=== PATIENT | female | born 1980 | race Caucasian/White ===

== ENCOUNTER 2016-07-04 17:24 | Emergency (ER) | payer SELFPAY ==
[2016-07-04 22:18] VITALS: BP 134/90
[2016-07-04 23:54] LABS: Bacteria,Urine 1+ /HPF (Negative); Bilirubin,Urine NEG (Negative); Blood,Urine LG (Negative); Ketones,Urine NEG (Negative); Leukocyte Esterase,Urine TR (Negative); Mucus,Urine 2+ /HPF; Nitrite,Urine NEG (Negative); Sperm,Urine FEW /HPF (NP); Urobilinogen,Urine < 2.0 mg/dL (<2.0)
[2016-07-04 23:59] LABS: RBC,Urine > 182.0 /HPF (0.0-6.0)
--- NOTE | 2016-07-05 02:14 | Emergency Department Report ---
ED ENT HPI - General Chief complaint: Sore Throat Stated complaint: PAIN IN THROAT Time Seen by Provider: 07/04/16 23:46 Source: patient Mode of arrival: Ambulatory Limitations: No Limitations - History of Present Illness Initial comments: This is a 36-year-old female that presents with sore throat that began today. Patient also is complaining with dysuria and polyuria that has been going on for 3-5 days. Patient denies any fever, chills, vaginal discharge, body aches, headache, chest pain or shortness of breath. Patient denies sick contact. Does not seem toxic or ill in appearance. No signs of any distress noted. Patient describes sore throat as aching. Patient stated she is not concerned about any sexual transmitted disease. MD complaint: sore throat, other (dysuria/polyuria) -: Gradual, days(s) Location: throat Severity: mild Severity scale (0 -10): 4 Quality: aching Consistency: constant Improves with: NSAID Worsens with: swallowing Associated Symptoms: pain with swallowing, sore throat. denies: fever, cough, gum swelling, toothache, tinnitus, hearing loss, discharge from ear, rhinorrhea - Related Data Previous Rx's Medication Instructions Recorded Last Taken Type Nitrofurantoin [place]/M-Cryst 100 mg PO Q12HR 7 Days 07/05/16 Unknown Rx [Macrobid CAP] Allergies Allergy/AdvReac Type Severity Reaction Status Date / Time Penicillins Allergy Rash Verified 07/04/16 18:04 ED Dental HPI - General Chief complaint: Sore Throat Stated complaint: PAIN IN THROAT Time Seen by Provider: 07/04/16 23:46 Source: patient Mode of arrival: Ambulatory Limitations: No Limitations - Related Data Previous Rx's Medication Instructions Recorded Last Taken Type Nitrofurantoin [place]/M-Cryst 100 mg PO Q12HR 7 Days 07/05/16 Unknown Rx [Macrobid CAP] Allergies Allergy/AdvReac Type Severity Reaction Status Date / Time Penicillins Allergy Rash Verified 07/04/16 18:04 ED Review of Systems ROS: Stated complaint: PAIN IN THROAT Other details as noted in HPI Constitutional: denies: chills, fever Eyes: denies: eye pain, eye discharge, vision change ENT: denies: ear pain, throat pain Respiratory: denies: cough, orthopnea, shortness of breath, SOB with exertion, SOB at rest, stridor, wheezing Cardiovascular: denies: chest pain, palpitations Endocrine: no symptoms reported Gastrointestinal: denies: abdominal pain, nausea, vomiting, diarrhea, constipation Genitourinary: denies: urgency, dysuria, discharge Musculoskeletal: denies: back pain, joint swelling, arthralgia Skin: denies: rash, lesions Neurological: denies: headache, weakness, paresthesias Psychiatric: denies: anxiety, depression Hematological/Lymphatic: denies: easy bleeding, easy bruising ED Past Medical Hx - Medications Home Medications: Home Medications Medication Instructions Recorded Confirmed Last Taken Type Nitrofurantoin [place]/M-Cryst 100 mg PO Q12HR 7 Days 07/05/16 Unknown Rx [Macrobid CAP] ED Physical Exam - General Limitations: No Limitations General appearance: alert, in no apparent distress - Head Head exam: Present: atraumatic, normocephalic - Eye Eye exam: Present: normal appearance - ENT ENT exam: Present: normal exam, normal orophraynx, mucous membranes moist, TM's normal bilaterally - Expanded ENT Exam Expanded Mouth exam: Present: normal external inspection, tongue normal. Absent: drooling, trismus, muffled voice, tongue elevation, laceration Teeth exam: Present: normal inspection Throat exam: Positive: normal inspection. Negative: tonsillar erythema, tonsillomegaly, tonsillar exudate, R peritonsillar mass, L peritonsillar mass - Neck Neck exam: Present: normal inspection, full ROM. Absent: tenderness, lymphadenopathy - Respiratory Respiratory exam: Present: normal lung sounds bilaterally. Absent: respiratory distress, wheezes, rales, rhonchi, stridor - Cardiovascular Cardiovascular Exam: Present: regular rate, normal rhythm. Absent: systolic murmur, diastolic murmur, rubs, gallop - GI/Abdominal GI/Abdominal exam: Present: soft, normal bowel sounds. Absent: distended, tenderness, guarding, rebound, rigid - Extremities Exam Extremities exam: Present: normal inspection, full ROM, normal capillary refill. Absent: tenderness, pedal edema - Back Exam Back exam: Present: normal inspection, full ROM. Absent: tenderness, CVA tenderness (R), CVA tenderness (L) - Neurological Exam Neurological exam: Present: alert, oriented X3, CN II-XII intact, normal gait - Psychiatric Psychiatric exam: Present: normal affect, normal mood - Skin Skin exam: Present: warm, dry, intact, normal color. Absent: rash ED Course Vital Signs 07/04/16 07/04/16 07/05/16 18:05 22:17 01:20 Temperature 98.5 F Pulse Rate 84 74 Respiratory 18 18 18 Rate Blood Pressure 142/96 Blood Pressure 134/90 [Left] O2 Sat by Pulse 100 98 99 Oximetry ED Medical Decision Making - Medical Decision Making Ed course: 36 year old female that presents with urinary tract infection 1- Centor score-1 points. At this time I instructed the patient that the chances of strep pharyngitis is 1-2.5%. No further testing nor the buttocks needed as per Centor score. 2- I instructed the patient of UA findings of the urinary tract infection and we 'll treat with antibiotics. 3- at the time of discharge the patient does not seem toxic or ill in appearance. 4- I instructed the patient to follow up with the primary care doctor in 3-5 days or if symptoms worsen. I also instructed that throat culture has been sent and the patient can come back in 3-5 days for culture results. 5- strep throat swab negative for strep. 6- patient received Macrobid 100 mg by mouth at time of discharge. Critical care attestation.: If time is entered above; I have spent that time in minutes in the direct care of this critically ill patient, excluding procedure time. ED Disposition Clinical Impression: UTI (urinary tract infection) Qualifiers: Urinary tract infection type: site unspecified Hematuria presence: without hematuria Qualified Code(s): N39.0 - Urinary tract infection, site not specified Disposition: DISCHARGED TO HOME OR SELFCARE Is pt being admited?: No Does the pt Need Aspirin: No Condition: Stable Instructions: Urinary Tract Infection in Women (ED) Additional Instructions: Follow-up with your primary care doctor in 3-5 days Report back in 3-5 days to [facility] for Throat culture results. If symptoms worsen report back to emergency room. Take full course of antibiotic as prescribed. Prescriptions: Nitrofurantoin [place]/M-Cryst [Macrobid CAP] 100 mg PO Q12HR 7 Days Referrals: SHIKHA LOWE MD [Primary Care Provider] - 3-5 Days PASCUAL PADGETT MD [Referring] - 3-5 Days JEANINE GUO MD [Referring] - 3-5 Days ABUTALIB,STERLING, MD [Referring] - 3-5 Days GILBERTO ROWE MD [Referring] - 3-5 Days [facility] [Outside] - 3-5 Days [facility] [Outside] - 3-5 Days Forms: Work/School Release Form(ED)
== END 2016-07-05 02:24 | disposition home or self-care (01) ==
LOC: ED 17:24
DX: N39.0 Urinary tract infection, site not specified (principal); Z88.0 Allergy status to penicillin
CPT/HCPCS: 81001; 81025; 87116; 87430; 99283